=== PATIENT | male | born 1935 | race Caucasian/White ===

== ENCOUNTER 2020-03-26 11:24 | Emergency (ER) | payer MEDICARE, SELFPAY ==
--- NOTE | ~2020-03-26 | XR_ITS ---
EXAMINATION: XR chest 2V DATE: 03/26/2020 12:10 INDICATION: Weakness. TECHNIQUE: Frontal and lateral views of the chest were obtained. COMPARISON: Chest single view 10/22/2009 FINDINGS: The chest demonstrates clear lungs without pneumonia, pleural effusion, or pneumothorax. Th e heart size is normal. There is mild chronic anterior wedging of multiple thoracic vertebral bodies. IMPRESSION: 1. No acute cardiopulmonary disease. Reviewed, dictated and finalized at location A. TECHNICIAN
[2020-03-26 11:30] VITALS: BP 184/68; PULSE 95; RESP 17; TEMP 36.9; O2SAT 99
--- NOTE | 2020-03-26 11:40 | ECG_ITS ---
Measurements Intervals [place] Rate: 82 P: 10 [place]: 203 QRS: 17 QRSD: 78 T: 16 QT: 350 QTc: 409 Interpretive Statements SINUS RHYTHM EARLY PRECORDIAL R/S TRANSITION BORDERLINE ST-T WAVE ABNORMALITY- ANTEROLAT/INF LEADS BASELINE ARTIFACT- I, III, AVL BORDERLINE ECG Electronically Signed On 03-26-2020 12:41:25 BAG PRESS OPERATOR by Dex Wills D.O.
[2020-03-26 11:57] VITALS: PULSE 84
[2020-03-26 12:03] LABS: Add Urine Microscopic? YES; Appearance Urine Clear (Clear); Bilirubin Urine Negative (Negative); Blood Urine Negative (Negative); Color Urine Amber (Yellow); Glucose Urine UA Negative (Negative); Ketones Urine Trace mg/dL (Negative); Leukocyte Esterase Ur Negative LEU/UL (Negative); Mucus Urine Few /lpf; Nitrate Urine Negative (Negative); Protein Urine 1+ mg/dL (Negative); Specific Grav Ur 1.024 (1.001-1.035); Squamous Epithelial Cell Urine Rare /hpf (Few)
[2020-03-26 12:05] LABS: Hematocrit 41.2 % (42.0-52.0); Hemoglobin 13.1 g/dL (14.0-18.0); Mean Corpuscular HGB Conc 31.8 g/dl (32-36); Mean Corpuscular Hemoglobin 30.8 pg (26-34); Mean Corpuscular Volume 96.7 fl (80-100); Mean Platelet Volume 8.9 fl (7.4-10.4); Platelet Count Result 126 k/mm3 (150-375); Red Blood Count 4.26 M/mm3 (4.6-6.20); Red Cell Distribution Width 14.4 % (11.5-14.5)
[2020-03-26 12:15] LABS: White Blood Count 190.3 K/mm3 (4.5-10.0)
[2020-03-26 12:19] LABS: Band Neutrophils Percent 1 % (0-6); Lymphocytes Absolute Manual 157.94 K/mm3 (1.1-4.5); Monocytes Percent Manual 2 % (3-9); Neutrophils Absolute Manual 28.54 K/mm3 (1.3-6.7); Neutrophils Percent Manual 14 % (46-73); Total Cells Counted 100
[2020-03-26 12:20] LABS: Platelet Estimate Decreased (Adequate); Smudge Cells PRESENT
[2020-03-26 12:25] LABS: Alanine Aminotransferase 15 U/L (4-50); Albumin Level 4.1 g/dL (3.5-5.1); Alkaline Phosphatase 91 U/L (38-126); Anion Gap 10 mmol/L (8-16); Aspartate Amino Transferase 42 U/L (17-59); Bilirubin,Total 0.7 mg/dL (0.2-1.3); Blood Urea Nitrogen 29 mg/dL (9-20); Calcium 9.4 mg/dL (8.4-10.2); Carbon Dioxide 21 mmol/L (22-30); Chloride 105 mmol/L (98-107); Estimated CRCL calculation 35 ml/min; Estimated Glomerular Filt Rate 48; Glucose 129 mg/dL (75-110); Potassium 5.2 mmol/L (3.4-5.0); Sodium 136 mmol/L (137-145)
[2020-03-26 12:38] LABS: Prothrombin Time 13.6 Seconds (11.1-14.7)
[2020-03-26 12:39] LABS: Partial Thromboplastin Time 26.2 SECONDS (22.3-36.8)
[2020-03-26] MEDS: SODIUM CHLORIDE 0.9% IV 1,000 ML 999 ML IV CONT (12:40)
[2020-03-26 13:17] LABS: Troponin I < 0.012 ng/mL (0.000-0.034)
--- NOTE | 2020-03-26 13:21 | ED.GENADULT ---
HPI - General Adult General Chief complaint: Unspecified Stated complaint: dont feel good Time Seen by Provider: 03/26/20 11:44 Source: patient Mode of arrival: ambulatory Limitations: no limitations History of Present Illness HPI narrative: Patient is an 84-year-old male who presents to emergency department noting feeling anxious this morning upon waking denies any pain or illness injury trauma or other complaints patient on arrival to emergency department is in no distress resting comfortably does not appear uncomfortable patient denies similar occurrence in the past patient notes that he did have a history of blood disease having been found to have elevated white blood cell count followed up with oncology and primary care but decided to not do any treatments patient. On arrival in the room with no other complaints resting comfortably Related Data Home Medications Medication Instructions Recorded Confirmed aspirin 81 mg tablet,delayed 81 mg PO DAILY 07/17/19 01/25/20 release Allergies Allergy/AdvReac Type Severity Reaction Status Date / Time No Known Allergies Verified 01/25/20 08:25 Review of Systems Review of Systems: All systems reviewed & are unremarkable except as noted in HPI and below PMFSH Past Medical History Medical History BMI 29.0-29.9,adult CLL (chronic lymphocytic leukemia) Elevated WBC count Family History Family History Mother Family history of malignant neoplasm Other Hypertension Social History Social History Smoking status: Never smoker Alcohol intake: never Gender identity (if verbalized by the patient): Male Exam Narrative: Exam Narrative: GENERAL: Well-appearing, well-nourished, and in no acute distress. HEAD: Normocephalic, atraumatic. EYES: PERRLA and EOMI. ENT: Nares clear, no rhinorrhea or epistaxis. Mucous membranes moist. CHEST: Clear to auscultation. No respiratory distress. No wheezes rales or rhonchi HEART: Regular rate and rhythm. No murmur heard. Normal peripheral pulses. ABDOMEN: Soft, nontender, nondistended EXTREMITIES: Normal range of motion. No edema. SKIN: Warm, dry, no rash. NEURO: No focal deficits. Alert and oriented x3. Cranial nerves II through XII grossly intact. Normal speech and gait PSYCH: Normal mood and affect. Course Course Emergency Course: Patient states been uneventful is asymptomatic at this time unclear as to the cause for the patient's anxiety. Patient denies any pain was hydrated given the slight dehydration. Patient advised that he should continue to follow with primary care for his CLL however he is opted to refuse any treatments. Patient is hemodynamically stable ABCs intact felt appropriate for outpatient reevaluation. No high risk changes in the blood work or imaging. Consultations Consultation #1: Discussed case with [facility] practitioner and Dr. Bishop's office noting they will follow the patient Date: 03/26/20 Time: 14:24 Vital Signs Vital signs: Vital Signs Temperature 98.5 F 03/26/20 11:30 Pulse Rate 95 03/26/20 11:30 Respiratory Rate 17 03/26/20 11:30 Blood Pressure 184/68 H 03/26/20 11:30 Pulse Oximetry 99 03/26/20 11:30 Temperature 98.5 F 03/26/20 11:30 Pulse Rate 84 03/26/20 13:45 Respiratory Rate 16 03/26/20 13:45 Blood Pressure 178/79 H 03/26/20 13:45 Pulse Oximetry 97 03/26/20 13:45 Medical Decision Making Vital Signs Vital Signs: Vital Signs Temperature 98.5 F 03/26/20 11:30 Pulse Rate 95 03/26/20 11:30 Respiratory Rate 17 03/26/20 11:30 Blood Pressure 184/68 H 03/26/20 11:30 Pulse Oximetry 99 03/26/20 11:30 Temperature 98.5 F 03/26/20 11:30 Pulse Rate 84 03/26/20 13:45 Respiratory Rate 16 03/26/20 13:45 Blood Pressure 178/79 H 03/26/20 13:45 Pulse Oximetry 9
[2020-03-26 13:45] VITALS: BP 178/79; PULSE 84; RESP 16; O2SAT 97
[2020-03-26 14:30] VITALS: BP 176/85; PULSE 80; RESP 16; O2SAT 97
== END 2020-03-26 14:30 | disposition home or self-care (01) ==
PROVIDERS: Emergency Medicine Emergency Medical Services; Emergency Provider Emergency Medicine; PCP Family Medicine
DX: F41.9 Anxiety disorder, unspecified (principal); Z79.82 Long term (current) use of aspirin; C91.10 Chronic lymphocytic leukemia of B-cell type not having achieved remission; R94.31 Abnormal electrocardiogram [ECG] [EKG]
CPT/HCPCS: 36415; 71046; 80053; 81001; 84484; 85025; 85610; 85730; 93005; 99284; J7030

== ENCOUNTER 2020-03-27 08:48 | Emergency (ER) | payer MEDICARE, SELFPAY ==
[2020-03-27 08:54] VITALS: BP 186/83; PULSE 90; RESP 20; TEMP 36.6; O2SAT 97
--- NOTE | 2020-03-27 09:20 | ED.ANXIETY ---
HPI - Anxiety General Chief Complaint: Anxiety Stated Complaint: ANXIETY, NEED PRESCRIPTION Time Seen by Provider: 03/27/20 08:52 Source: patient Mode of arrival: ambulatory Limitations: no limitations History of Present Illness HPI narrative: This patient is an 84 year old male who presents from home for a prescription for anxiety. PAtient states his friend 2 days ago. He was evaluated at [facility] yesterday for anxiousness. He states he has labs and xrays performed. He reports he felt better when he left the ER yesterday but this morning he is anxious again. He wants to get a prescription for anxiety because he is unable to get an appointment with his PCP until April 17. He denies headache, chest pain, shortness of breath, nausea or vomiting. He states he is just shaky. Related Data Home Medications Medication Instructions Recorded Confirmed aspirin 81 mg tablet,delayed 81 mg PO DAILY 07/17/19 01/25/20 release Allergies Allergy/AdvReac Type Severity Reaction Status Date / Time No Known Allergies Verified 03/27/20 09:26 Review of Systems Review of Systems: All systems reviewed & are unremarkable except as noted in HPI and below Constitutional: Constitutional: Denies chills and Denies fever(s) ENT: Denies dizziness Cardiovascular: Cardiovascular: Denies chest pain and Denies radiating jaw, neck or arm pain Respiratory: Respiratory: Denies cough and Denies dyspnea PMF Past Medical History Medical History BMI 29.0-29.9,adult CLL (chronic lymphocytic leukemia) Elevated WBC count Family History Family History Mother Family history of malignant neoplasm Other Hypertension Social History Social History Smoking status: Never smoker Alcohol intake: never Gender identity (if verbalized by the patient): Male Exam Const: General: no acute distress and alert Orientation/consciousness: patient oriented x3 HENMT: Head: normocephalic and atraumatic Face and sinus: face symmetric Eyes: EOM: EOMs intact bilaterally Resp: Effort & Inspection: normal respiratory effort and no retractions Auscultation: clear to auscultation bilaterally Cardio: Rate: regular rate Rhythm: regular rhythm Heart sounds: no murmurs GI: GI Palp: Yes Soft to palpation, No Tenderness to palpation present (GI) and No Guarding due to palpation present (GI) Auscultation: normal bowel sounds Skin: General skin exam: normal color Rashes: no rashes Neuro: General: patient oriented x3 and moves all extremities Gait exam (Neuro): Normal gait present Psych: Appearance: grossly normal Affect: Anxious affect present Thought content: Yes Normal thought content present Course Reevaluation(s) Reevaluation #1: I have discussed with patient plan to draw thyroid and he will follow up with PCP next week. I will prescribe some ativan. Date: 03/27/20 Time: 10:38 Consultations Consultation #1: I spoke with Dr. Raygoza who recommends drawing a thyroid. He is okay with giving patient prescription for ativan and they will see in clinic next week. Date: 03/27/20 Time: 09:48 Vital Signs Vital signs: Vital Signs Temperature 97.8 F 03/27/20 08:54 Pulse Rate 90 03/27/20 08:54 Respiratory Rate 20 03/27/20 08:54 Blood Pressure 186/83 H 03/27/20 08:54 Pulse Oximetry 97 03/27/20 08:54 Temperature 97.8 F 03/27/20 08:54 Pulse Rate 70 03/27/20 11:00 Respiratory Rate 16 03/27/20 11:00 Blood Pressure 164/76 H 03/27/20 11:00 Pulse Oximetry 97 03/27/20 11:00 MDM - Anxiety Medical Records Attestation: I reviewed the patient's medical records. Medical records narrative: I reviewed yesterday's ED visit. Lab Data Labs: Lab Results 03/27/20 Range/Units 10:29 TSH (Reflex) 0.916 (0.465-4.68) uIU/mL
[2020-03-27 11:00] VITALS: BP 164/76; PULSE 70; RESP 16; O2SAT 97
[2020-03-27 12:05] LABS: Thyroid Stimulating Hormone Reflex 0.916 uIU/mL (0.465-4.68)
== END 2020-03-27 11:00 | disposition home or self-care (01) ==
PROVIDERS: Emergency Provider General Practice; PCP Family Medicine
DX: F41.9 Anxiety disorder, unspecified (principal); Z79.82 Long term (current) use of aspirin; C91.10 Chronic lymphocytic leukemia of B-cell type not having achieved remission
CPT/HCPCS: 36415; 84443; 99283

== ENCOUNTER 2020-04-21 09:22 | Outpatient (CLI) | payer MEDICARE, SELFPAY ==
[2020-04-21 09:45] LABS: Basophils Absolute Auto 0.1 K/mm3 (0.0-0.1); Eosinophils Absolute Auto 0.1 K/mm3 (0-0.3); Eosinophils Percent Auto 0.1 % (0-4.4); Hematocrit 40.5 % (42.0-52.0); Hemoglobin 12.7 g/dL (14.0-18.0); Immature Granulocyte Absolute 0.38 K/mm3 (0.00-0.031); Immature Granulocyte Percent A 0.2 % (0-0.5); Lymphocytes Absolute Auto 170.81 K/mm3 (0.9-3.2); Lymphocytes Percent Auto 92.5 % (18.3-44.2); Mean Corpuscular HGB Conc 31.4 g/dl (32-36); Mean Corpuscular Volume 95.7 fl (80-100); Mean Platelet Volume 9.2 fl (7.4-10.4); Monocytes Absolute Auto 6.7 K/mm3 (0.1-0.6); Monocytes Percent Auto 3.6 % (2.6-8.5); Neutrophils Absolute Auto 6.7 K/mm3 (1.3-6.7); Neutrophils Percent Auto 3.6 % (45.5-73.1); Platelet Count Result 136 k/mm3 (150-375); Red Blood Count 4.23 M/mm3 (4.6-6.20); Red Cell Distribution Width 14.6 % (11.5-14.5)
[2020-04-21 09:49] LABS: White Blood Count 184.7 K/mm3 (4.5-10.0)
[2020-04-21 09:54] LABS: Atypical Lymphocytes Present; Smudge Cells PRESENT
[2020-04-21 10:24] LABS: Alanine Aminotransferase 14 U/L (4-50); Alkaline Phosphatase 86 U/L (38-126); Anion Gap 7 mmol/L (8-16); Aspartate Amino Transferase 41 U/L (17-59); Bilirubin,Total 0.5 mg/dL (0.2-1.3); Blood Urea Nitrogen 32 mg/dL (9-20); Calcium 9.5 mg/dL (8.4-10.2); Carbon Dioxide 22 mmol/L (22-30); Chloride 107 mmol/L (98-107); Estimated Glomerular Filt Rate 48; Glucose 139 mg/dL (75-110); Lactate Dehydrogenase 321 U/L (313-618); Potassium 3.9 mmol/L (3.4-5.0); Sodium 136 mmol/L (137-145)
== END 2020-04-21 09:23 | disposition home or self-care (01) ==
LOC: ANHLAB 09:25
PROVIDERS: PCP Family Medicine; Visit Provider Internal Medicine Hematology & Oncology
DX: C91.10 Chronic lymphocytic leukemia of B-cell type not having achieved remission (principal)
CPT/HCPCS: 36415; 80053; 83615; 85025; 88184; 88185; 88237; 88271; 88275

== ENCOUNTER 2020-12-11 10:13 | Emergency (ER) | payer MEDICARE, SELFPAY ==
[2020-12-11 10:14] VITALS: BP 187/82; PULSE 97; RESP 24; TEMP 36.8; O2SAT 98
--- NOTE | 2020-12-11 10:16 | ECG_ITS ---
Measurements Intervals [place] Rate: 89 P: 49 [place]: 210 QRS: 38 QRSD: 79 T: 49 QT: 352 QTc: 429 Interpretive Statements SINUS RHYTHM WITH FIRST DEGREE AV BLOCK EARLY PRECORDIAL R/S TRANSITION NONSPECIFIC ST & T-WAVE ABNORMALITY- ANTEROLAT/INF LEADS BASELINE ARTIFACT- II, III, AVF, V3-V6 ABNORMAL ECG Electronically Signed On 12-11-2020 11:54:55 CDT by Dex Wills D.O.
--- NOTE | 2020-12-11 10:21 | ED.ARRPALP ---
HPI - Arrhythmia/Palpitations General Chief Complaint: Arrhythmia/Palpitations Stated Complaint: Chest Pain Source: patient and RN notes reviewed Limitations: no limitations History of Present Illness HPI narrative: The elderly patient --on only a few meds yet incl for CLL, HTN-- presents with palpitations. Patient states he awoke from sleep with heart racing. No fever, cough, vomiting/diarrhea/dehydration, bleeding, head?chest?abdominal pain ; symptoms are mild somewhat resolved gradually over 15 minutes time. Patient reports he has insomnia, similar sensation for diagnosis of anxiety in the past. He reports he had noncontributory blood test, chest x-ray at the beginning of the year . So advised to go to higher-level care facility to higher level testing , because for early diagnosis of serious problems -he declines AMA Related Data Home Medications Medication Instructions Recorded Confirmed aspirin 81 mg tablet,delayed 81 mg PO DAILY 07/17/19 12/11/20 release Allergies Allergy/AdvReac Type Severity Reaction Status Date / Time No Known Allergies Verified 12/11/20 10:17 Review of Systems Review of Systems: General/Constitutional: No weight loss,fever Eyes: N0: Redness,discharge Ears/Nose/Throat: No: Epistaxis,ear discharge Respiratory: Denies: Hemoptysis Gastrointestinal: No Vomiting, Bleeding-rectal Skin: No Lumps, eruption Neurologic: No Focal Weakness,Sz Hematologic: Denies: Petechiae/Purpura Psychiatric: No: Suicida ideationl All Other Systems: Reviewed and Negative PMFSH Past Medical History Medical History (Updated 12/13/20 @ 12:46 by Maverick Kiran MD) BMI 29.0-29.9,adult CLL (chronic lymphocytic leukemia) Elevated WBC count Family History Family History Mother Family history of malignant neoplasm Other Hypertension Social History Social History Alcohol intake: never Gender identity (if verbalized by the patient): Male Comments At time of signature, agree with nursing past medical, surgical, social and family history. There is no relevant family history pertinent to the presenting complaint Exam Narrative: General Appearance: Well nourished/, No distress EYE: PERRLA, Conjunctiva clear Ears: External ear normal Nose: Normal nose Mouth/Throat: Normal appearing, Normal lips Neck: Supple Respiratory: Airway patent, No respiratory distress Cardiovascular: RRR Abdomen: Soft, Non-tender, Musculoskeletal: Full ROM Skin: Warm, Dry Neurological: A&O x3, CN II-X intact Psychiatric: Normal mood, Normal affect Course Course Emergency Course: advertising sales associate sandra for stable vital signs EKG NSR at 89, first-degree AVB HI 0.21, QRS 0.07, QTc 0.398, nonspecific ST-T changes Vital Signs Vital signs: Vital Signs Temperature 98.2 F 12/11/20 10:14 Pulse Rate 97 12/11/20 10:14 Respiratory Rate 24 H 12/11/20 10:14 Blood Pressure 187/82 H 12/11/20 10:14 Pulse Oximetry 98 12/11/20 10:14 Temperature 98.2 F 12/11/20 10:14 Pulse Rate 79 12/11/20 11:05 Respiratory Rate 16 12/11/20 11:05 Blood Pressure 139/66 12/11/20 11:05 Pulse Oximetry 100 12/11/20 11:05 Discharge Plan Discharge Clinical Impression: Palpitations Insomnia Qualifiers: Insomnia type: unspecified Qualified Code(s): G47.00 - Insomnia, unspecified Patient Disposition: Left Against Medical Advice Condition: Guarded Prognosis Instructions: Heart Palpitations (ED), Anxiety (ED) Additional Instructions: You have declined hospital referral today but may return there anytime. See your primary doctor in follow-up without fail then Prescriptions: New trazodone 50 mg tablet 25 - 50 mg PO HS PRN (Reason: insomnia) Qty: 20 RF: 2 No Action aspirin 81 mg tablet,delayed release (DR/EC) 81 mg PO DAILY RF: 0 losartan-hydrochlorothiazide 100-1
[2020-12-11 10:31] VITALS: BP 150/83; PULSE 84; RESP 18; O2SAT 100
[2020-12-11 10:45] VITALS: BP 140/59; PULSE 76; RESP 16; O2SAT 100
[2020-12-11 11:05] VITALS: BP 139/66; PULSE 79; RESP 16; O2SAT 100
--- NOTE | 2020-12-11 11:15 | PC.NURSE ---
PT DENIES ANY COMPLAINTS DECLINES BEING TRANSFERRED TO THE EMERGENCY DEPARTMENT. NAD NOTED DURING CLINIC VISIT.
== END 2020-12-11 11:05 | disposition left against medical advice (07) ==
PROVIDERS: Emergency Provider Emergency Medicine
DX: R00.2 Palpitations (principal); G47.00 Insomnia, unspecified; I10 Essential (primary) hypertension; C91.10 Chronic lymphocytic leukemia of B-cell type not having achieved remission; Z79.82 Long term (current) use of aspirin
CPT/HCPCS: 93005; 99213; G0463

== ENCOUNTER 2021-11-09 15:34 | Emergency (ER) | payer MEDICARE, SELFPAY ==
[2021-11-09] VITALS (9 sets, daily range): BP systolic 126–177; BP diastolic 56–91; PULSE 60–72; RESP 11–20; TEMP 36.8; O2SAT 96–100
--- NOTE | ~2021-11-09 | CT_ITS ---
EXAMINATION: CT brain wo con DATE: 11/09/2021 15:45 INDICATION: Left-sided vision loss, numbness and weakness on the left side. TECHNIQUE: Computed tomography (CT) of the head was performed without intravenous contrast. The mA wa s adjusted according to patient size. Iterative reconstruction technique was employed. The dose-lengt h product was 605.33 mGy-cm. COMPARISON: None FINDINGS: No acute intracranial hemorrhage or extra-axial fluid collection. No hydrocephalus, mass, or herniation. No acute ischemic infarct. Unremarkable dural venous sinus attenuation. No acute osseous abnormality. Mild maxillary mucosal thickening, otherwise the aerated spaces are clear. Mild atrophy. Moderate chronic white matter change. Atherosclerotic intracranial calcification. IMPRESSION: No acute intracranial process. Reviewed, dictated and finalized at location K.
--- NOTE | ~2021-11-09 | XR_ITS ---
XR chest 1V DATE: 11/09/2021 15:51 INDICATION: Cerebrovascular accident TECHNIQUE: AP chest COMPARISON: 03/26/2020 PA and lateral chest FINDINGS: Normal heart size. There is aortic calcification and mild tortuosity. No hilar or mediastin al enlargement. No pulmonary infiltrate or consolidation, pleural effusion or pulmonary vascular congestion or pneumo thorax. 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 Degenerative change of mild dextro scoliosis of the thoracolumbar spine. IMPRESSION: No active cardiopulmonary disease Aortic atherosclerosis Reviewed, dictated and finalized at location B.
--- NOTE | 2021-11-09 15:37 | ECG_ITS ---
Measurements Intervals [place] Rate: 71 P: -9 [place]: 206 QRS: 21 QRSD: 76 T: 19 QT: 389 QTc: 423 Interpretive Statements SINUS RHYTHM NORMAL EKG COMPARED TO ECG 12/11/2020 10:18:26 NO SIGNIFICANT CHANGES Electronically Signed On 11-10-2021 16:25:12 CDT by Patricia Santamaria M.D.
[2021-11-09 15:41] LABS: Glucose Point of Care 106 mg/dl (65-105)
[2021-11-09 15:53] LABS: Hematocrit 39.8 % (42.0-52.0); Hemoglobin 11.8 g/dL (14.0-18.0); Mean Corpuscular HGB Conc 29.6 g/dl (32-36); Mean Corpuscular Hemoglobin 29.6 pg (26-34); Mean Platelet Volume 8.7 fl (7.4-10.4); Platelet Count Result 108 k/mm3 (150-375); Red Blood Count 3.98 M/mm3 (4.6-6.20); Red Cell Distribution Width 15.6 % (11.5-14.5)
[2021-11-09 16:02] LABS: Alanine Aminotransferase 12 U/L (6-50); Albumin Level 4.2 g/dL (3.5-5.1); Alkaline Phosphatase 103 U/L (38-126); Anion Gap 10 mmol/L (8-16); Aspartate Amino Transferase 44 U/L (17-59); Bilirubin,Total 0.6 mg/dL (0.2-1.3); Blood Urea Nitrogen 34 mg/dL (9-20); Calcium 9.4 mg/dL (8.4-10.2); Carbon Dioxide 22 mmol/L (22-30); Chloride 103 mmol/L (98-107); Estimated CRCL calculation 33 ml/min; Estimated Glomerular Filt Rate 48; Glucose 109 mg/dL (65-110); Potassium 4.9 mmol/L (3.4-5.0); Sodium 135 mmol/L (137-145)
[2021-11-09 16:03] LABS: INR 1.1; Prothrombin Time 13.9 Seconds (11.1-14.7)
[2021-11-09 16:04] LABS: Partial Thromboplastin Time 33.3 SECONDS (22.3-36.8)
[2021-11-09 16:08] LABS: Neutrophils Percent Manual 3 % (46-73); Total Cells Counted 100
[2021-11-09 16:09] LABS: Atypical Lymphocytes Present; Lymphocytes Absolute Manual 185.27 K/mm3 (1.1-4.5); Lymphocytes Percent Manual 97 % (18-44); Ovalocytes 1+ (NORMAL); Platelet Estimate Decreased (Adequate); Smudge Cells MODERATE
[2021-11-09 16:13] LABS: Troponin I < 0.012 ng/mL (0.000-0.034)
[2021-11-09] MEDS: ASPIRIN 81 MG CHEWABLE TABLET 324 MG PO (16:48)
--- NOTE | 2021-11-09 17:35 | ED.NEUROSD ---
HPI - Neuro Symptoms/Deficit General Chief Complaint: Suspected CVA Stated Complaint: L. sided weakness Time Seen by Provider: 11/09/21 15:39 History of Present Illness HPI Narrative: Patient is a 86-year-old male who presents ER with concerns for stroke. Reports 2 minutes prior to arrival he was having left-sided numbness in his arm and his leg. He also was missing half of his visual field. Unsure if it to the left side of the right side. He sat in his recliner briefly to evaluate himself and decided he was having a medical emergency and got in his car and drove to the ER. He is having no chest pain or chest pressure. He has no shortness of breath. No history of previous stroke. He does take a baby aspirin. After getting checked in and being wheeled to stroke station patient had resolution of symptoms. Related Data Home Medications Medication Instructions Recorded Confirmed aspirin 81 mg tablet,delayed 81 mg PO DAILY 07/17/19 10/14/21 release Allergies Allergy/AdvReac Type Severity Reaction Status Date / Time No Known Allergies Allergy Verified 11/09/21 16:05 Review of Systems Review of Systems: All systems reviewed & are unremarkable except as noted in HPI and below Constitutional: Constitutional: Denies chills and Denies fever(s) Eyes: Eyes: Denies diplopia, Denies floaters and Reports loss of vision ENT: Denies nasal congestion and Denies sore throat Cardiovascular: Cardiovascular: Denies chest pain, Denies radiating jaw, neck or arm pain and Denies palpitations Respiratory: Respiratory: Denies cough, Denies dyspnea and Denies wheezing Gastrointestinal: Gastrointestinal: Denies abdominal pain, Denies nausea and Denies vomiting Neurologic: Denies dizziness, Denies syncope, Denies headache(s), Denies lack of coordination, Denies focal weakness, Reports numbness and Reports Sensory deficit (Neuro) [facility] Past Medical History Medical History (Updated 11/09/21 @ 20:28 by Orlando Mulligan MD) CLL (chronic lymphocytic leukemia) Enlarged prostate without lower urinary tract symptoms (luts) Essential (primary) hypertension Insomnia Stage III chronic kidney disease Surgical History Surgical History (Updated 11/09/21 @ 17:43 by Orlando Mulligan MD) No pertinent past surgical history Family History Family History Mother Family history of malignant neoplasm Father Atherosclerosis Black lung Sibling Manic bipolar I disorder Other Hypertension Social History Social History Smoking status: Never smoker Second hand tobacco smoke exposure: No Alcohol intake: never Substance use: never Substance use type: does not use 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 HEAD: Normocephalic, atraumatic. EYES: PERRL and EOMI. ENT: Mucous membranes moist. CHEST: Clear to auscultation. No respiratory distress. HEART: Regular rate and rhythm. Normal peripheral pulses. ABDOMEN: Soft, nontender, nondistended. EXTREMITIES: Normal range of motion. No edema. SKIN: Warm, dry, no rash. NEURO: Alert and oriented x3. No upper or lower extremity drift. Clear speech. Cranial nerves II through XII intact. No sharp touch deficit. Please see the NIH stroke scale. PSYCH: Normal mood and affect. Course Course Emergency Course: Patient resting comfortably. Is excepted for transfer to [facility] by Dr. Mendoza with neurology. I had multiple discussions with the patient as well as his niece Ginette who acts as medical decision-maker with him. She can be reached at [phone]. Patient has received aspirin. There is no recommendation for CTA at this time. Patient necessitated transfer due to lack
--- NOTE | 2021-11-09 18:02 | PC.NURSE ---
[facility] transfer center called for information on patient for transfer.
[2021-11-09 18:47] LABS: SARS-CoV-2 RNA PCR Negative
--- NOTE | 2021-11-09 19:00 | PC.NURSE ---
[facility] transfer center called for pt's covid result of negative.
--- NOTE | 2021-11-09 19:31 | PC.NURSE ---
Assumed care of pt at this time. Pt alert and upright on stretcher, updated on POC.
[2021-11-10 00:50] VITALS: BP 126/56; PULSE 57; RESP 12; O2SAT 96
--- NOTE | 2021-11-10 00:54 | PC.NURSE ---
Pt accepted at [facility]. [id number]. Number for report: [phone]
[2021-11-10 02:34] VITALS: BP 150/65; PULSE 60; RESP 16; O2SAT 97
[2021-11-10 03:11] VITALS: BP 162/59; PULSE 57; RESP 16; O2SAT 99
== END 2021-11-10 03:13 | disposition short-term general hospital (02) ==
PROVIDERS: Emergency Provider Emergency Medicine; PCP Family Medicine
DX: G45.9 Transient cerebral ischemic attack, unspecified (principal); Z20.822 Contact with and (suspected) exposure to COVID-19; C91.10 Chronic lymphocytic leukemia of B-cell type not having achieved remission; N40.0 Benign prostatic hyperplasia without lower urinary tract symptoms; I12.9 Hypertensive chronic kidney disease with stage 1 through stage 4 chronic kidney disease, or unspecified chronic kidney disease; N18.30 Chronic kidney disease, stage 3 unspecified; Z79.82 Long term (current) use of aspirin; I70.0 Atherosclerosis of aorta
CPT/HCPCS: 36415; 70450; 71045; 80053; 82948; 84484; 85025; 85610; 85730; 93005; 99284; 99285; A9270; C9803; U0003; U0005

== ENCOUNTER 2022-07-08 11:31 | Emergency (ER) | payer MEDICARE, SELFPAY ==
--- NOTE | 2022-07-08 11:38 | ED.SKABFB ---
HPI - Skin/Abscess/Foreign Bdy General Chief complaint: Skin/Abscess/Foreign Body Stated complaint: shingles Source: patient, RN notes reviewed and old records reviewed Mode of arrival: ambulatory Limitations: no limitations History of Present Illness HPI narrative: 87 year old male accompanied by son with complaints of pain to shingles lesions and along back. Patient broke out with shingles on the 20 of June. Patient received prescription for Valtrex and Gabapentin and Lidocaine patch and patient reports that he is out of the pain medication and continues to have pain. Patient has used the Lidocaine patches around scabbed vesicle areas on his left abdomen radiating to his mid back area. Patient reports some stabbing pain in left back area. Son say he can't get his dad to get into shower to wash area since grand daughter left on vacation, she had been carrying for her grandfather. Son states she can get him to do things he is suppose to do but father is not real cooperative with other family members. complaint: other (post herpetic neuralgia) Onset (ago): day(s) (18) Location: back ( from mid left abdomen to left mid) Severity scale (1-10): 5 Quality: burning Treatments prior to arrival: other (antiviral medication, gabapentin, lidocaine patches) Related Data Allergies Allergy/AdvReac Type Severity Reaction Status Date / Time No Known Allergies Allergy Verified 07/08/22 11:39 Review of Systems Review of Systems: CONSTITUTIONAL: Denies fever, chills, or sweats. EYES: Denies visual changes, redness, or discharge. ENT: Denies rhinorrhea, congestion, sore throat, or otalgia. CARDIOVASCULAR: Denies chest pain, palpitations, or edema. RESPIRATORY: Denies cough or dyspnea. GASTROINTESTINAL: Denies abdominal pain, nausea, vomiting, or diarrhea. GENITOURINARY: Denies dysuria or hematuria. SKIN: Positive for blistery scabbing rash to left abdominal area radiating to left back with continued pain to back region near rash and some itching. MUSCULOSKELETAL: Denies back pain, joint pain, or myalgia. NEUROLOGIC: Denies headache, numbness, or weakness. PSYCHIATRIC: Denies anxiety or depression. All systems reviewed & are unremarkable except as noted in HPI and below PMFSH Past Medical History Medical History CLL (chronic lymphocytic leukemia) Enlarged prostate without lower urinary tract symptoms (luts) Essential (primary) hypertension Insomnia Stage III chronic kidney disease Surgical History Surgical History No pertinent past surgical history Family History Family History Mother Family history of malignant neoplasm Father Atherosclerosis Black lung Sibling Manic bipolar I disorder Other Hypertension Social History Social History Smoking status: Never smoker Second hand tobacco smoke exposure: No Alcohol intake: never Substance use: never Substance use type: does not use Living arrangements: alone Occupation/Education: retired 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 There is no relevant family history pertinent to the presenting complaint Exam Narrative: GENERAL: Well-appearing, well-nourished, and in no acute distress. HEAD: Normocephalic, atraumatic. EYES: PERRLA and EOMI. ENT: Nares clear, no rhinorrhea or epistaxis. Mucous membranes moist.TM's normal with good light reflex, throat pink no swelling NECK: Supple. no lymphadenopathy CHEST: Clear to auscultation. No respiratory distress. SAO2 99% on room air HEART: Regular rate and rhythm. No murmur heard. Normal peripheral
[2022-07-08 11:45] VITALS: BP 165/84; PULSE 91; RESP 16; TEMP 37.2; O2SAT 99
== END 2022-07-08 12:11 | disposition home or self-care (01) ==
PROVIDERS: Emergency Provider Registered Nurse
DX: B02.29 Other postherpetic nervous system involvement (principal); B02.9 Zoster without complications; N40.0 Benign prostatic hyperplasia without lower urinary tract symptoms; I12.9 Hypertensive chronic kidney disease with stage 1 through stage 4 chronic kidney disease, or unspecified chronic kidney disease; N18.30 Chronic kidney disease, stage 3 unspecified; Z85.6 Personal history of leukemia
CPT/HCPCS: 99213; G0463

== ENCOUNTER 2022-07-20 11:37 | Emergency (ER) | payer MEDICARE, SELFPAY ==
--- NOTE | ~2022-07-20 | CT_ITS ---
EXAMINATION: CT abdomen pelvis w con DATE: 07/20/2022 15:18 INDICATION: Rule out obstruction TECHNIQUE: Computed tomography (CT) of the abdomen and pelvis was performed with 100 cc Omnipaque 350 intravenous contrast. The dose-length product was 686.34 mGy-cm. Automated exposure control and iter ative reconstruction technique were employed. COMPARISON: No prior studies for comparison. FINDINGS: There are nondilated fluid-filled small bowel loops, most likely ileus or enteritis. The ap pendix is fluid-filled. There is splenomegaly. Spleen measures 20.6 cm. Gallbladder is moderately dis tended. No significant surrounding inflammatory changes. The liver, pancreas, adrenal glands are unre markable. There are small subcentimeter hypodensities of the kidneys, most likely benign. No free air or free fluid. There is osteoarthritis of the hips. There is an intramedullary nas in the right femu r. There is a fat-containing umbilical hernia. Moderate-severe lumbar spondylosis. IMPRESSION: 1. Fluid-filled nondilated small bowel, most likely ileus or enteritis. 2: Moderately dilated gallbladder without associated inflammatory changes, possibly secondary to fas ting state. 3: Splenomegaly. Reviewed, dictated and finalized at location A. IMPRESSION: 1. Fluid-filled nondilated small bowel, most likely ileus or enteritis. 2: Moderately dilated gallbladder without associated inflammatory changes, pos sibly secondary to fasting state. 3: Splenomegaly.
[2022-07-20 11:40] VITALS: BP 153/73; PULSE 86; RESP 18; TEMP 36.6; O2SAT 99
--- NOTE | 2022-07-20 14:19 | ED.ABDPAIN ---
HPI - Abdominal Pain General Chief Complaint: Abdominal Pain Stated Complaint: shingles Time Seen by Provider: 07/20/22 13:55 Source: patient Mode of arrival: ambulatory Limitations: no limitations History of Present Illness HPI narrative: This is a 79-year-old male with PMH of TIA, CKD, CLL who presents to the ED with chief complaint of constipation x3 weeks. Patient reports 3 weeks since last bowel movement. He has been taking MiraLAX as directed by his primary care provider with no relief. Denies nausea or vomiting. He does have abdominal pain but has been dealing with a shingles rash that spreads to the left side of the abdomen. States he has had the rash for 5 weeks and it causes him a lot of pain. Has been taking Tylenol and gabapentin with minimal relief. Denies fevers, chills, diarrhea, chest pain, shortness of breath, cough, urinary symptoms. Related Data Home Medications Medication Instructions Recorded Confirmed losartan 100 mg tablet 100 mg PO DAILY 07/16/22 07/16/22 Allergies Allergy/AdvReac Type Severity Reaction Status Date / Time No Known Allergies Allergy Verified 07/16/22 08:45 Review of Systems Review of Systems: CONSTITUTIONAL: Denies fever, chills, or sweats. EYES: Denies visual changes, redness, or discharge. ENT: Denies rhinorrhea, congestion, sore throat, or otalgia. CARDIOVASCULAR: Denies chest pain, palpitations, or edema. RESPIRATORY: Denies cough or dyspnea. GASTROINTESTINAL: See HPI GENITOURINARY: Denies dysuria or hematuria. SKIN: See HPI MUSCULOSKELETAL: Denies back pain, joint pain, or myalgia. NEUROLOGIC: Denies headache, numbness, dizziness, or weakness. PSYCHIATRIC: Denies anxiety or depression. [facility] Past Medical History Medical History BMI 30.0-30.9,adult CLL (chronic lymphocytic leukemia) Enlarged prostate without lower urinary tract symptoms (luts) Essential (primary) hypertension Insomnia Stage III chronic kidney disease Surgical History Surgical History No pertinent past surgical history Family History Family History Mother Family history of malignant neoplasm Father Atherosclerosis Black lung Sibling Manic bipolar I disorder Other Hypertension Social History Social History Smoking status: Never smoker Second hand tobacco smoke exposure: No Alcohol intake: never Substance use: never Substance use type: does not use Lack of Transportation: No Lack of Food: Never True Current Housing: I Have Housing Concerned About Future Housing: No Difficulty Paying Gas/Electric Bills: No Difficulty Paying for Meds: No Currently Unemployed: No Education: High School Diploma/GED Difficulty w/ Childcare or Family Care: No Living arrangements: alone Occupation/Education: retired 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 HEAD: Normocephalic, atraumatic. EYES: PERRLA and EOMI. ENT: Nares clear, no rhinorrhea or epistaxis. Mucous membranes moist. Oropharynx without tonsillar hypertrophy exudate or other lesions. NECK: Supple. No adenopathy or masses. CHEST: No respiratory distress. Clear to auscultation. No wheezes rales or rhonchi HEART: Regular rate and rhythm. No murmur heard. Normal peripheral pulses. ABDOMEN: Soft, nontender, nondistended, normal active bowel sounds. EXTREMITIES: Normal range of motion. No edema. SKIN: Erythematous dermatomal rash to the left side of the abdomen and back just under the rib line. Tender to touch. Several healing wounds, some open and some close. NEURO: Alert and orie
[2022-07-20 14:44] LABS: Hematocrit 38.3 % (42.0-52.0); Hemoglobin 11.1 g/dL (14.0-18.0); Mean Corpuscular Hemoglobin 30.4 pg (26-34); Mean Corpuscular Volume 104.9 fl (80-100); Mean Platelet Volume 9.1 fl (7.4-10.4); Platelet Count Result 111 k/mm3 (150-375); Red Blood Count 3.65 M/mm3 (4.6-6.20); Red Cell Distribution Width 18.2 % (11.5-14.5)
[2022-07-20 14:55] LABS: Alanine Aminotransferase 21 U/L (6-50); Albumin Level 3.9 g/dL (3.5-5.1); Alkaline Phosphatase 127 U/L (38-126); Anion Gap 4 mmol/L (8-16); Aspartate Amino Transferase 58 U/L (17-59); Bilirubin,Total 0.8 mg/dL (0.2-1.3); Blood Urea Nitrogen 23 mg/dL (9-20); Calcium 8.8 mg/dL (8.4-10.2); Carbon Dioxide 25 mmol/L (22-30); Chloride 103 mmol/L (98-107); Estimated CRCL calculation 39 ml/min; Estimated Glomerular Filt Rate 57; Glucose 106 mg/dL (65-110); Lipase 30 U/L (23-300); Potassium 5.6 mmol/L (3.4-5.0); Sodium 132 mmol/L (137-145)
[2022-07-20 15:12] LABS: White Blood Count 229.1 K/mm3 (4.5-10.0)
[2022-07-20 15:13] LABS: Lymphocytes Percent Manual 100 % (18-44); Total Cells Counted 100
[2022-07-20 15:14] LABS: Atypical Lymphocytes Present; Ovalocytes 1+ (NORMAL); Platelet Estimate Decreased (Adequate); Schistocytes None Seen (NORMAL); Smudge Cells MANY
[2022-07-20 16:17] LABS: Appearance Urine Clear (Clear); Bacteria Urine None Seen /hpf; Bilirubin Urine Negative (Negative); Blood Urine Negative (Negative); Color Urine Dark Yellow (Yellow); Glucose Urine UA Negative (Negative); Ketones Urine Negative (Negative); Leukocyte Esterase Ur Trace LEU/UL (Negative); Nitrate Urine Negative (Negative); Non Pathogenic Casts 0-2; Protein Urine Trace mg/dL (Negative); Squamous Epithelial Cell Urine None seen /hpf (Few); WBC Urine 21-50 /hpf
[2022-07-20 16:25] LABS: Specific Grav Ur 1.074 (1.001-1.035)
[2022-07-20 16:26] LABS: Add Urine Microscopic? YES
[2022-07-20 16:40] VITALS: BP 148/70; PULSE 84; RESP 15; TEMP 36.8; O2SAT 97
== END 2022-07-20 16:40 | disposition home or self-care (01) ==
PROVIDERS: Emergency Provider Physician Assistant; PCP Physician Assistant Medical
DX: B02.8 Zoster with other complications (principal); B96.89 Other specified bacterial agents as the cause of diseases classified elsewhere; C91.10 Chronic lymphocytic leukemia of B-cell type not having achieved remission; I12.9 Hypertensive chronic kidney disease with stage 1 through stage 4 chronic kidney disease, or unspecified chronic kidney disease; N18.30 Chronic kidney disease, stage 3 unspecified; N40.0 Benign prostatic hyperplasia without lower urinary tract symptoms; Z86.73 Personal history of transient ischemic attack (TIA), and cerebral infarction without residual deficits; R16.1 Splenomegaly, not elsewhere classified
CPT/HCPCS: 36415; 74177; 80053; 81001; 83690; 85025; 87086; 87147; 87181; 87186; 99284; Q9967